=== PATIENT | male | born 1935 | race Two or more races ===

== ENCOUNTER → 2017-05-24 | Outpatient (CLI) | payer OTHER | END | disposition home or self-care (01) | LOC: LAB EV 12:10 | DX: N39.0 Urinary tract infection, site not specified (principal) | CPT/HCPCS: 87086 ==

== ENCOUNTER → 2017-06-27 | Outpatient (CLI) | payer OTHER | LOC: LAB EV 16:43 | DX: R30.0 Dysuria (principal) | CPT/HCPCS: 87086; 87147 ==

== ENCOUNTER 2020-09-21 11:48 | Emergency (ER) | payer MEDICARE ==
[~2020-09-21] VITALS: Ht 182.9 cm; Wt 87.1 kg
[2020-09-21 12:20] LABS: EOSINOPHILS ABSOLUTE AUTO 0.12 K/mm3 (0.00-0.68); EOSINOPHILS PERCENT AUTO 0 % (0-6); Hematocrit 35.9 % (37.0-53.0); Hemoglobin 11.1 g/dL (13.5-17.5); Mean Corpuscular HGB 29.3 pg (26.0-34.0); Mean Corpuscular HGB Conc 30.9 g/dL (31.5-36.5); Mean Corpuscular Volume 95 fL (80-100); Mean Platelet Volume 9.8 fL (9.1-12.4); NRBC ABSOLUTE 0.02 K/mm3 (0.00-0.02); Platelet Count 80 K/mm3 (150-400); RDW Coefficient Variation 13.4 % (11.7-14.2); Red Blood Cell Count 3.79 M/mm3 (4.30-5.90)
[2020-09-21 12:26] LABS: BASOPHILS ABSOLUTE AUTO 0.06 K/mm3 (0.00-0.23); BASOPHILS PERCENT AUTO 0 % (0-2); IMMATURE GRAN ABSOLUTE AUTO 0.16 K/mm3 (0.00-0.10); IMMATURE GRAN PERCENT AUTO 0 % (0-1); LYMPHOCYTES ABSOLUTE AUTO 63.85 K/mm3 (0.84-5.20); LYMPHOCYTES PERCENT AUTO 92 % (21-46); MONOCYTES ABSOLUTE AUTO 2.04 K/mm3 (0.16-1.47); MONOCYTES PERCENT AUTO 3 % (4-13); NEUTROPHILS ABSOLUTE AUTO 3.03 K/mm3 (1.96-9.15); NEUTROPHILS PERCENT AUTO 4 % (41-73)
[2020-09-21 12:27] LABS: White Blood Cell Count 69.26 K/mm3 (4.00-11.30)
[2020-09-21 12:44] LABS: Alanine Aminotransfer (ALT/SGP 15 U/L (12-78); Albumin, Blood 3.8 g/dL (3.4-5.0); Albumin/Globulin Ratio 1.2 (0.8-1.8); Alk Phos 120 U/L (50-136); Anion Gap 4 mmol/L (6-16); Aspartate Aminotrans (AST/SGOT 15 U/L (12-37); Blood Urea Nitrogen 18 mg/dL (8-24); CO2, Blood 27 mmol/L (21-32); Calcium, Blood 8.4 mg/dL (8.5-10.1); Chloride, Blood 109 mmol/L (98-108); Globulin, Blood 3.2 g/dL (2.2-4.0); Glomerular Filtration Rate >60 (60-); Glucose, Blood 79 mg/dL (70-99); Potassium, Blood 4.6 mmol/L (3.5-5.5); Sodium, Blood 140 mmol/L (136-145)
[2020-09-21 14:35] LABS: Source, Urine Clean Catch
[2020-09-21 14:37] LABS: Appearance, Urine Clear (Clear); Bilirubin, Urine Neg (Neg); Blood, Urine Neg (Neg); Color, Urine Yellow (P-Yellow); Glucose Qualitative, Urine Neg (Neg); Ketones, Urine Neg (Neg); Leukocyte Esterase, Urine Neg (Neg); Nitrite, Urine Neg (Neg); Protein, Urine Neg (Neg); Specific Gravity, Urine 1.005 (1.003-1.022); Urobilinogen, Urine NORM (Normal)
== END 2020-09-21 16:05 | disposition home or self-care (01) ==
LOC: ER 11:48
PROVIDERS: Emergency Medicine
DX: D72.829 Elevated white blood cell count, unspecified (principal); D69.6 Thrombocytopenia, unspecified; D64.9 Anemia, unspecified
CPT/HCPCS: 36415; 71046; 80053; 81003; 83690; 85025; 99283-25

== ENCOUNTER → 2021-05-03 | Outpatient (CLI) | payer MEDICARE ==
[2021-05-03 18:03] LABS: Hematocrit 32.9 % (37.0-53.0); Hemoglobin 10.8 g/dL (13.5-17.5); Mean Corpuscular HGB 29.6 pg (26.0-34.0); Mean Corpuscular HGB Conc 32.8 g/dL (31.5-36.5); Mean Corpuscular Volume 90 fL (80-100); RDW Coefficient Variation 13.2 % (11.7-14.2); RDW Standard Deviation 43.3 fL (35.1-46.3); Red Blood Cell Count 3.65 M/mm3 (4.30-5.90); White Blood Cell Count 9.12 K/mm3 (4.00-11.30)
[2021-05-03 18:12] LABS: Albumin, Blood 3.8 g/dL (3.4-5.0); Albumin/Globulin Ratio 1.5 (0.8-1.8); Bun/Creatinine Ratio 16.9 (12.0-20.0); Calcium, Blood 8.2 mg/dL (8.5-10.1); Creatinine, Blood 1.36 mg/dL (0.60-1.20); Globulin, Blood 2.5 g/dL (2.2-4.0); Potassium, Blood 4.4 mmol/L (3.5-5.5); Total Protein, Blood 6.3 g/dL (6.4-8.2)
[2021-05-03 19:11] LABS: Mean Platelet Volume 10.8 fL (9.1-12.4)
[2021-05-03 19:16] LABS: Platelet Count 48 K/mm3 (150-400)
[2021-05-03 19:29] LABS: BAND PERCENT MAN 1 % (0-8); BASOPHILS PERCENT MAN 0 % (0-2); EOSINOPHILS PERCENT MAN 0 % (0-6); LYMPHOCYTES ABSOLUTE MAN 6.38 K/mm3 (0.84-5.20); LYMPHOCYTES PERCENT MAN 70 % (21-46); MONOCYTES ABSOLUTE MAN 0.45 K/mm3 (0.16-1.47); MONOCYTES PERCENT MAN 5 % (4-13); NEUTROPHILS ABSOLUTE MAN 2.28 K/mm3 (1.96-9.15); SEG NEUTROPHILS PERCENT MAN 24 % (41-73); TOTAL CELLS COUNTED 100
== END | disposition home or self-care (01) ==
LOC: LAB SHORT 17:17
PROVIDERS: Physician Assistant
DX: R50.9 Fever, unspecified (principal)
CPT/HCPCS: 80053; 83605; 85025

== ENCOUNTER → 2021-05-04 | Outpatient (CLI) | payer MEDICARE | END | disposition home or self-care (01) | LOC: LAB SHORT 17:28 → LAB 17:28 | DX: K12.2 Cellulitis and abscess of mouth (principal) | CPT/HCPCS: 87081 ==

== ENCOUNTER 2021-11-20 09:04 | Inpatient (IN) | payer MEDICARE ==
[~2021-11-20] VITALS: Ht 180.3 cm; Wt 82.9 kg
[2021-11-20 10:38] LABS: BASOPHILS ABSOLUTE AUTO 0.02 K/mm3 (0.00-0.23); BASOPHILS PERCENT AUTO 0 % (0-2); EOSINOPHILS ABSOLUTE AUTO 0.01 K/mm3 (0.00-0.68); EOSINOPHILS PERCENT AUTO 0 % (0-6); Hematocrit 34.6 % (37.0-53.0); Hemoglobin 11.5 g/dL (13.5-17.5); IMMATURE GRAN ABSOLUTE AUTO 0.13 K/mm3 (0.00-0.10); IMMATURE GRAN PERCENT AUTO 1 % (0-1); LYMPHOCYTES ABSOLUTE AUTO 7.65 K/mm3 (0.84-5.20); LYMPHOCYTES PERCENT AUTO 46 % (21-46); MONOCYTES ABSOLUTE AUTO 1.16 K/mm3 (0.16-1.47); MONOCYTES PERCENT AUTO 7 % (4-13); Mean Corpuscular HGB 28.8 pg (26.0-34.0); Mean Corpuscular HGB Conc 33.2 g/dL (31.5-36.5); Mean Corpuscular Volume 87 fL (80-100); Mean Platelet Volume 11.3 fL (9.1-12.4); NEUTROPHILS ABSOLUTE AUTO 7.75 K/mm3 (1.96-9.15); NEUTROPHILS PERCENT AUTO 46 % (41-73); Platelet Count 118 K/mm3 (150-400); RDW Coefficient Variation 12.4 % (11.7-14.2); RDW Standard Deviation 39.7 fL (35.1-46.3); Red Blood Cell Count 3.99 M/mm3 (4.30-5.90); White Blood Cell Count 16.72 K/mm3 (4.00-11.30)
[2021-11-20 10:56] LABS: Albumin, Blood 3.1 g/dL (3.4-5.0); Albumin/Globulin Ratio 0.9 (0.8-1.8); Bilirubin, Total 1.3 mg/dL (0.1-1.0); Bun/Creatinine Ratio 23.5 (12.0-20.0); Calcium, Blood 8.7 mg/dL (8.5-10.1); Creatinine, Blood 1.32 mg/dL (0.60-1.20); Globulin, Blood 3.3 g/dL (2.2-4.0); Potassium, Blood 4.3 mmol/L (3.5-5.5); Total Protein, Blood 6.4 g/dL (6.4-8.2)
--- NOTE | 2021-11-20 18:21 | NUR ---
PT TRANSFERRED TO ROOM AT 1735. SETTLED TO ROOM. H/R REG, NO MURMUR NOTED. NO TELE. LUNGS COARSE T/O. WHEEZY T/O. R/A RESP EASY, UNLABORED. BT HYPO. LAST BM 3 DAYS PER PT. STATES NOT EATING 3-4 DAYS PER PT. VIODS URINAL. FIXED HOME CANCER MEDS. SENT TO [facility]. ADJUSTED TIMES. WILL MAKE PT SBA TO BATHROOM WITH FWW IS INDEPENDANT AT HOME. SOME WEAK NOW. BED IN LOW POSITION, CALL LITE IN REACH, CALLS APPROP
[2021-11-20] MEDS ORDERED: CALQUENCE PO (19:39)
[2021-11-21 05:19] LABS: Hemoglobin 10.8 g/dL (13.5-17.5); Mean Corpuscular HGB 29.1 pg (26.0-34.0); Mean Corpuscular HGB Conc 33.8 g/dL (31.5-36.5); Mean Corpuscular Volume 86 fL (80-100); Mean Platelet Volume 10.6 fL (9.1-12.4); Platelet Count 98 K/mm3 (150-400); RDW Coefficient Variation 12.7 % (11.7-14.2); RDW Standard Deviation 39.8 fL (35.1-46.3); Red Blood Cell Count 3.71 M/mm3 (4.30-5.90); White Blood Cell Count 16.91 K/mm3 (4.00-11.30)
[2021-11-21 05:42] LABS: Bun/Creatinine Ratio 22.1 (12.0-20.0); Creatinine, Blood 1.22 mg/dL (0.60-1.20)
--- NOTE | 2021-11-21 07:17 | NUR ---
PT AT START OF SHIFT ALERT TO SELF, PLACE AND MONTH. PT NOTED TO BE IMPULSIVE AND UNSTEADY REQUIRING SBA-1ASSIST. PT NOTED WITH CONFUSION AND WARM TO TOUCH. TEMPERATURE CHECKED 101.9 MEDICATED WITH TYLENOL, APPLIED ICE AND AWARE. PT RECHECK TEMP 102.8 NOTIFED WITH ORDER FOR ONE TIME DOSE OF ASPIRIN. MEDICATION GIVEN PER JUL AND AFTWERWARD TEMP 98.9.
[2021-11-21 12:08] LABS: Source, Urine Voided
[2021-11-21 12:46] LABS: Appearance, Urine Clear (Clear); Bilirubin, Urine Neg (Neg); Blood, Urine 4+ (Neg); Color, Urine Amber (P-Yellow); Glucose Qualitative, Urine Neg (Neg); Ketones, Urine 2+ (Neg); Leukocyte Esterase, Urine Neg (Neg); Nitrite, Urine Neg (Neg); Protein, Urine 2+ (Neg); Specific Gravity, Urine 1.025 (1.003-1.022); Urobilinogen, Urine 1+ (Normal)
[2021-11-21 13:13] LABS: Amorphous Light (0-Heavy); Bacteria Few /hpf; Granular Casts 0-2 /lpf (0); Hyaline Casts 0-2 /lpf (0-2); Red Blood Cells, Urine 0-2 /hpf (0-2); Squamous Epithelial Cells Rare /hpf (Few); White Blood Cells, Urine 0-2 /hpf (0-5)
--- NOTE | 2021-11-21 16:05 | NUR ---
TEMP ELEVATED 14:45, TYLENOL GIVEN. RECHECK 15:[address] CHANEY. WATCH AND SEE.
--- NOTE | 2021-11-21 18:21 | NUR ---
PT PLEASANT CONFUSED TODAY. FOLLOWS DIRECTION. ATTEMPTS TO GET OUT ON WRONG SIDE BED R/T IV POLE. PLACED A BSC FOR HIS CONVENIENCE. THIS SEEMS TO HELP SOME. TO ROOM THIS KRISHNA. KEEPING HIM OCCUPIED. TEMP UP SOME TODAY. TREATED WIH TYLENOL. CALLED DR CHANEY. REQUEST WE MONITOR AND KEEP HIM COOL BEST. NO MEDS ORDERS. FAN PLACED/ PT IN T SHIRT AND PULLUPS. SITTING IN CHAIR. CHAIR ALARM ON FOR SAFETY. MINIMAL EATING. BED IN LOW POSITION , CALL LITE IN REACH, BED ALARM ON FOR SAFETY
--- NOTE | 2021-11-22 04:13 | NUR ---
SHIFT SUMMARY PT AOX2. ABLE TO FOLLOW DIRECTION BUT HAS BEEN CONFUSE. PT STS HE LIVES IN [place], THAT HE'S IN A DOCTORS OFFICE IN [place]. NON DISTRESSED. VERY MUCH ALERT. PT HAS BEEN UP FREQUENTLY, EVERY HOUR OR SO TO USE THE BSC. NO BM TONGIHT. 1 SBA. DOES NOT USE CALL LIGHT. BED ALARM ON, AND IN LOW POSITION. PT FEBRILE AT THE BEGINNING OF SHIFT. MEDICATED WITH TYLENOL AND HAVE BEEN GETTING COLD WASH CLOTH EVERY COUPLE HOURS. FEVER IMPROVED, AFEBRILE THIS MORNING. IV FLUIDS INFUSING. IV ABX ADMINISTERED. CALL LIGHT WITHIN REACH. WILL PROVIDE REPORT TO ONCOMING NURSE.
[2021-11-22 05:43] LABS: Hematocrit 35.6 % (37.0-53.0); Hemoglobin 11.7 g/dL (13.5-17.5); Mean Corpuscular HGB 29.1 pg (26.0-34.0); Mean Corpuscular HGB Conc 32.9 g/dL (31.5-36.5); Mean Corpuscular Volume 89 fL (80-100); Mean Platelet Volume 10.8 fL (9.1-12.4); Platelet Count 96 K/mm3 (150-400); RDW Coefficient Variation 12.7 % (11.7-14.2); RDW Standard Deviation 41.4 fL (35.1-46.3); Red Blood Cell Count 4.02 M/mm3 (4.30-5.90); White Blood Cell Count 16.78 K/mm3 (4.00-11.30)
[2021-11-22 06:04] LABS: Albumin, Blood 2.8 g/dL (3.4-5.0); Anion Gap 10 mmol/L (6-16); Blood Urea Nitrogen 26 mg/dL (8-24); Bun/Creatinine Ratio 22.6 (12.0-20.0); CO2, Blood 20 mmol/L (21-32); Calcium, Blood 8.1 mg/dL (8.5-10.1); Chloride, Blood 103 mmol/L (98-108); Creatinine, Blood 1.15 mg/dL (0.60-1.20); Glomerular Filtration Rate 62 (60-); Glucose, Blood 114 mg/dL (70-99); Phosphorus, Blood 2.1 mg/dL (2.5-4.9); Sodium, Blood 133 mmol/L (136-145)
--- NOTE | 2021-11-22 19:11 | NUR ---
DAY SHIFT SUMMARY 85 YR OLD MALE PT WITH PNEUMONIA/SEPSIS. PT'S AT BEDSIDE THROUGHOUT DAY TO HELP WITH MEALS. CONT/INCONT. STANDBY ASSIST. PT ON RA, REG DIET, MEDS WHOLE, BED ALARM ON, CALL LIGHT WITHIN REACH, FREQUENT ROUNDING D/T PT'S CONFUSION.
[2021-11-23 06:01] LABS: Hematocrit 34.2 % (37.0-53.0); Hemoglobin 11.3 g/dL (13.5-17.5); Mean Corpuscular HGB 28.8 pg (26.0-34.0); Mean Corpuscular Volume 87 fL (80-100); Mean Platelet Volume 10.8 fL (9.1-12.4); Platelet Count 94 K/mm3 (150-400); RDW Coefficient Variation 12.8 % (11.7-14.2); RDW Standard Deviation 40.6 fL (35.1-46.3); Red Blood Cell Count 3.92 M/mm3 (4.30-5.90)
[2021-11-23 06:27] LABS: Albumin, Blood 2.5 g/dL (3.4-5.0); Anion Gap 10 mmol/L (6-16); Blood Urea Nitrogen 22 mg/dL (8-24); Bun/Creatinine Ratio 18.8 (12.0-20.0); CO2, Blood 20 mmol/L (21-32); Calcium, Blood 8.1 mg/dL (8.5-10.1); Chloride, Blood 105 mmol/L (98-108); Creatinine, Blood 1.17 mg/dL (0.60-1.20); Glomerular Filtration Rate 61 (60-); Glucose, Blood 109 mg/dL (70-99); Phosphorus, Blood 1.8 mg/dL (2.5-4.9); Potassium, Blood 3.7 mmol/L (3.5-5.5); Sodium, Blood 135 mmol/L (136-145)
--- NOTE | 2021-11-23 07:32 | NUR ---
PT BP 84/[address] VALLES NOTIF[address]. BP 82/[address] VALLES MADE AWARE WITH ORDER FOR 500 LR BOLUS. BOLUS GIVEN AND BP IMPROVED AND DR. VALLES AWARE WITH ORDER OF 1L OF LR. PT ALSO NOTED WITH WHEEZING WORSE THAN USUAL. MD CONTACTED WITH ORDER FLUIDS ALSO DECRASED TO 75 ML/HR. RT AT BEDSIDE TO ASSESS PT AND AT THIS TIME WHEEZING SIGNIFICANTLY LESS AND PT ALSEEP WITH GOOD SATURATIONS. PT IS VERY IMPULSIVE AND UNSTEADY HIGH FALL RISK. HE REMAINS CONFUSED ALERT TO SELF ONLY.
[2021-11-23 14:03] LABS: C DIFFICILE DNA NEGATIVE (Negative)
--- NOTE | 2021-11-23 17:55 | NUR ---
SHIFT SUMMARY NO ACUTE CHANGES THIS SHIFT. PATIENT IS ALERT, CONFUSED AND FOLLOWS COMMANDS. HE IS PLEASANT, IMPULSIVE AND DOES NOT CALL. BED ALARM AT ALL TIMES. IVS INFUSING ALL DAY PER ORDERS. PATIENT RESTED MOST OF THE SHIFT. HE DID WORK WITH PT, RECOMMENDATION FOR HOME HEALTH. PER CARE MANAGEMENT, PATIENTS DECLINES SERVICES AT THIS TIME. BED LOW AND LOCKED, CALL LIGHT WITHIN REACH, BED ALARM SET. WILL CONT TO MONITOR UNTIL REPORT GIVEN TO RULING MACHINE FEEDER.
--- NOTE | 2021-11-24 06:21 | NUR ---
SHIFT SUMMARY PATIENT ALERT AND ORIENTED TO SELF. HAD NO COMPLAINTS OF PAIN OR SHORTNESS OF BREATH. NO ACUTE ISSUES NOTED OVERNIGHT. BED IN LOWEST POSITION WITH WHEELS LOCKED AND ALARM ON. CALL LIGHT WITHIN REACH REPORT GIVEN TO ONCOMING RN.
--- NOTE | 2021-11-24 11:13 | NUR ---
PT OFF OF CANCER DRUG WHILE HERE PER NOTES. IT IS OFF EMAR. PT SPOUSE STATES ABOUT $16,000/ MONTH. GAVE BALANCE OF PILLS TO PT SPOUSE (3 TABS.)
--- NOTE | 2021-11-24 18:29 | NUR ---
PT PLEASANT CONFUSED. NO C/O PAIN. DID TRY COUGH DROP TODAY FOR PERSISTANT COUGH. ALSO JOSE ASH. SON IN FROM [place]. DID AMBULATE IN [place] SOME TODAY WITH PHYSICAL THERAPY. AT BEDSIDE SOME TODAY. WE DISCUSSED CODE STATUS SOME. SHE PRETTY CONFIDENT IF HE STOPPED BREATHING, HE WOULD WANT TO GO HOME WITH THE LORD. WILL SPEAK TO FAMILY AND VISIT WITH TOMORROW. EXPLAINED DOES NOT CHANGE CARE AT THIS POINT. JUST IF HE . PT IS SLEEPING MUCH OF DAY. STATES THIS FAIRLY NORMAL LAST FEW MONTHS. BED IN LOW POSITION, CALL LITE IN REACH, BED ALARM ON FOR SAFETY
--- NOTE | 2021-11-25 05:19 | NUR ---
SHIFT SUMMARY PATIENT ALERT AND ORIENTED TO SELF. HAD NO COMPLAINTS OF PAIN. WAS PLACED ON 4 LITERS O2 VIA NASAL CANULA TO KEEP O2 SATS >90%. HE WAS TACHYPNIC AND REQUIRED TWO PRN BREATHING TREATMENTS. BED IN LOWEST POSITION WITH WHEELS LOCKED AND ALARM ON. CALL LIGHT WITHIN REACH. REPORT GIVEN TO ONCOMING RN.
[2021-11-25 08:14] LABS: Hematocrit 28.1 % (37.0-53.0); Hemoglobin 9.5 g/dL (13.5-17.5); Mean Corpuscular HGB 29.1 pg (26.0-34.0); Mean Corpuscular HGB Conc 33.8 g/dL (31.5-36.5); Mean Corpuscular Volume 86 fL (80-100); Mean Platelet Volume 10.7 fL (9.1-12.4); Platelet Count 78 K/mm3 (150-400); RDW Coefficient Variation 12.8 % (11.7-14.2); RDW Standard Deviation 40.4 fL (35.1-46.3); Red Blood Cell Count 3.26 M/mm3 (4.30-5.90); White Blood Cell Count 9.71 K/mm3 (4.00-11.30)
[2021-11-25 08:25] LABS: Albumin, Blood 2.2 g/dL (3.4-5.0); Anion Gap 9 mmol/L (6-16); Blood Urea Nitrogen 17 mg/dL (8-24); Bun/Creatinine Ratio 12.3 (12.0-20.0); CO2, Blood 25 mmol/L (21-32); Calcium, Blood 7.6 mg/dL (8.5-10.1); Chloride, Blood 103 mmol/L (98-108); Creatinine, Blood 1.38 mg/dL (0.60-1.20); Glomerular Filtration Rate 50 (60-); Glucose, Blood 114 mg/dL (70-99); Phosphorus, Blood 3.3 mg/dL (2.5-4.9); Sodium, Blood 137 mmol/L (136-145)
--- NOTE | 2021-11-25 09:00 | NUR ---
PT AWAKE THIS AM MORE THAN YESTERDAY. ALERT TO SELF SOME FAMILY. NO DETAILS. HE SLEPT MOST OF YESTERDAY. FAMILY IN TO SEE TODAY. H/R REG, NO MURMER NOTED. NO TELE. LUNGS EXP WHEEZES T/O BUT NOT SURE IF IS BRONCHIAL. IS NOW ON 4L O2L. FROM LAST NITE. DID ATTEMPT TO TURN DOWN TO 2L. HELD FOR A FEW MIN AT 92% WHEN SITTING UP IN CHAIR, THEN DROPPED WHEN WENT BACK TO BED. DISCUSSED WITH DR MAYS. DRY COUGH CONTINUES. BT X4 LAST BM LAST NITE. PT UNSURE. VOIDS TO BSC, OCC INCONT IN ATTENDS. CDI NOW. BED IN LOW POSITION, CALL LITE IN REACH, BED ALARM ON FOR SAFETY
--- NOTE | 2021-11-25 12:50 | NUR ---
PT TO ROOM THIS AM. STATES HE HAS TALKED IN PAST ABOUT CODE STATUS BEING DNR. LEVI FROM [facility] CALLED LAST NITE. SHE TO SEE PT TODAY. DISCUSSED WITH DR MAYS. PT MADE DNR PER THEIR WISHES.
--- NOTE | 2021-11-25 15:32 | NUR ---
PT LUNGS WHEEZY, COUGHING. CALLED RT FOR BREATHING TX. HE COUGHED DURING. APPEARS SOME BETTER AFTER. DR MAYS TO BEDSIDE. AGREED TO ORDER SOLUMEDROL. DONE.
--- NOTE | 2021-11-25 17:55 | NUR ---
PT PLEASANT CONFUSED. MOSTLY CONTINENT, SOME INCONT. AND SON HERE TO VISIT TODAY. PT STILL GETTING TO BSC WITH LITE [address] STARTED ON STEROIDS. LUNGS PRETTY WHEEZY. PT DID ADMIT TO HISTORY OF SMOKING. THINKS MAYBE 20 YEARS. NOT SURE HOW MUCH. FAMILY REALLY ENCOURAGING PT TO EAT. WHICH HE GENERALLY TRIES NOT TO DO. RESP ARE UP TO 28 MOST OF DAY. CONTINUE ON 4L O2. THIS WAS DISCUSSED WITH DR MAYS. BED IN LOW POSITION, CALLLITE IN REACH CALL LITE IN REACH,
[2021-11-26 05:57] LABS: Bun/Creatinine Ratio 17.1 (12.0-20.0); Calcium, Blood 7.9 mg/dL (8.5-10.1); Creatinine, Blood 1.23 mg/dL (0.60-1.20); Potassium, Blood 3.3 mmol/L (3.5-5.5)
--- NOTE | 2021-11-26 06:28 | NUR ---
PT IN BETTER SPIRITS AND MORE ALERT THIS SHIFT. PT ALERT TO SELF AND PLACE. PT CONTINOUS WITH HACKING COUGH AND ROBITUSSIN DM ADDED WHICH HAS HELPED PT. PT REMAINS IMPULSIVE HOWEVET AT TIMES HE HAS CALLED APPROPRIATELY. PT ON 3.5 L NC RESPIRATIONS AT TIMES 24-26. PT DID HAVE 2 SMALL BM WITH STOOL NOTED TO BE DARK GREEN AND OILY. PT ASKING WHEN HE CAN GO HOME AND LOOKING FORWARD TO THIS.
--- NOTE | 2021-11-26 16:58 | NUR ---
SHIFT SUMMARY PT AxOx3 WITH INTERM MILD CONFUSION. PT IS PLEASANT AND COOPERATIVE WITH CARE. PT WORKED WITH PHYSICAL THERAPY TODAY. PT FAMILY STATES HIS MENTATION AND GENERAL STRENGTH HAVE GREATLY IMPROVED. PT BREATHING WITHOUT DIFFICULTY ON 2L O2 VIA NC AT END OF SHIFT. PT CURRENTLY RESTING IN BED WITH FAMILY AT BEDSIDE. CALL LIGHT IN REACH. VITALS REVIEWED. CURRENT PLAN IS FOR PATIENT TO DC TOMORROW TO HOME.
[2021-11-27 05:42] LABS: Bun/Creatinine Ratio 17.6 (12.0-20.0); Calcium, Blood 8.4 mg/dL (8.5-10.1); Creatinine, Blood 1.31 mg/dL (0.60-1.20); Potassium, Blood 3.5 mmol/L (3.5-5.5)
--- NOTE | 2021-11-27 05:58 | NUR ---
SHIFT SUMMARY PT STILL HAS SOOME MOMENTS OF CONFUSEION. HE WAS ABLE TO GIVE ME THE YEAR, MONTHM, AND PLACE CORRECTLY, BUT THEN STATED THAT AT HIS NEXT BIRTHDAY HE WOULD BE 41. HE GETS UP FREQUNETLY WITHOUT CALLING TO USE THE RESTROOMAND GET GLASSES OF WATER OR WASH HIS FACE, BUT IS REDIRECTED BACK TO BED EASILY. HE IS EAGER TO RETURN HOME TO HIS BED, WHICH IS THE [place] FOR DAYSHIFT. BED IN LOWEST POSITION AND CALL LIGHT IN REACH
[2021-11-27] MEDS ORDERED: GUAI600T33 PO (11:13)
[2021-11-27] MEDS ORDERED: AMOCLA875 PO (11:13)
[2021-11-27] MEDS ORDERED: Prednisone10 MG PO (11:14)
[2021-11-27] MEDS ORDERED: VISBIOME 112.51 EACH PO (11:14)
[2021-11-27] MEDS ORDERED: PROAIR RESPICL90 MCG INH (11:15)
--- NOTE | 2021-11-27 13:59 | NUR ---
DISCHARGE PATIENT WAS DISCHARGED EARLY THIS AFTERNOON. FAMILY IS PRESENT. HE WILL BE GOING HOME WITH HOME HEALTH CARE SERVICES. IV WAS TAKEN OUT, AND OXYGEN SATURATION REMAINED ABOVE 90 WITHOUT OXYGEN ON. PATIENTS MEDICATION SCRIPTS WERE FAXED TO [facility] [place] [facility]. HE WILL BE TRANSPORTED HOME WITH FAMILY. [facility] ACCOMPANIED THE PATIENT TO THE DOORS IN A FOR DISCHARGE.
[2021-12-05] MEDS ORDERED: CEFU500T30 PO (15:59)
[2021-12-05] MEDS ORDERED: MELATONIN5 M1 PO (16:00)
== END 2021-11-27 13:08 | disposition home health service (06) | DRG 871 ==
LOC: ER 09:04 → MEDS 13:36
PROVIDERS: Emergency Medicine; Internal Medicine; Nurse Practitioner Acute Care; ADMIT Internal Medicine
DX: A41.9 Sepsis, unspecified organism (principal); G92.8 Other toxic encephalopathy; J18.9 Pneumonia, unspecified organism; C91.10 Chronic lymphocytic leukemia of B-cell type not having achieved remission; E87.1 Hypo-osmolality and hyponatremia; C85.90 Non-Hodgkin lymphoma, unspecified, unspecified site; N17.9 Acute kidney failure, unspecified; R65.20 Severe sepsis without septic shock; R19.7 Diarrhea, unspecified; N18.30 Chronic kidney disease, stage 3 unspecified; D69.6 Thrombocytopenia, unspecified; E83.39 Other disorders of phosphorus metabolism; Z90.49 Acquired absence of other specified parts of digestive tract; Z98.890 Other specified postprocedural states; Z86.16 Personal history of COVID-19; Z79.899 Other long term (current) drug therapy; Z66 Do not resuscitate
CPT/HCPCS: 36415; 70450; 71045; 80048; 80053; 80069; 80202; 81001; 83605; 84145; 85025; 85027; 87040; 87070; 87493; 93005; 93010; 94640; 94664; 94760; 94761; 96365; 96375; 97110; 97116; 97161; 97530; 99285-25; A9270; J0456; J0696; J1650; J2543; J2930; J3370; J7030; J7050; J7060; J7120; J7512